=== PATIENT | female | born 1990 | race Asian ===

== ENCOUNTER → 2018-07-23 | Outpatient (CLI) | payer BC ==
[~2018-07-23] MED LIST: ACHD5005 PO; BENZ56AE TP; CODE-54 PO; CYCL10TA9 PO; DCS100C PO; FERR240T9 PO; FRS325T PO; IBP600T1 PO; PREN1TAB19 PO; VALA500T4 PO
--- NOTE | 2018-07-23 17:41 | Diagnostic Imaging Report ---
INDICATION: patient, anatomic survey. TECHNIQUE: Multiple real-time grayscale images were obtained over the gravid uterus. COMPARISON: No previous during this . FINDINGS: A single live intrauterine fetus is seen measuring 21 weeks 3 days by composite measurements. The fetus is in cephalic presentation. Amniotic fluid appears qualitatively normal. heart rate is 148 beats per minute. Placenta is fundal and grade 1 with no evidence of previa. Cervical length was 4.4 cm. Maternal adnexa could not be visualized. survey showed normal-appearing kidneys, bladder, stomach, and intracranial ventricles. Normal appearing four-chamber heart view is seen. Three-vessel cord and cord insertion appear normal. Views of the spine were unremarkable. Biometrical measurements are as follows: Biparietal 5.05 cm, age 21 weeks 3 days. Head circumference 18.87 cm, age 21 weeks 2 days. Abdominal circumference 15.99 cm, age 21 weeks 1 days. Femur length 3.61 cm, age 21 weeks 4 days. Sonographic estimate age: 21 weeks 3 days. Sonographic estimated date of delivery: 11/30/2017. Estimated Weight: 410 gm (+/- 35 gm). LMP percentile: 50%. heart rate: 148 beats per minute. number: 1 of 1. IMPRESSION: Single live intrauterine fetus measuring 21 weeks 3 days in size. There are no detectable abnormalities. Dictated by: Dictated on workstation # [id number]
== END ==
LOC: RAD 15:09
PROVIDERS: ATTEND Obstetrics & Gynecology
DX: Z36.89 Encounter for other specified antenatal screening (principal); Z3A.21 21 weeks gestation of pregnancy
CPT/HCPCS: 76805

== ENCOUNTER 2018-11-07 18:38 | Outpatient (CLI) | payer BC, MEDICAID ==
[~2018-11-07] VITALS: Ht 170.2 cm; Wt 85.4 kg
--- NOTE | 2018-11-07 18:47 | NUR ---
SHA JACK presented to unit via from ED, accompanied by s/o and toddler, with c/o ABD PAIN. SHA JACK weighed, gowned, voided, and to bed. EFHM and TOCO applied, VS taken. SHA JACK oriented to bed controls, call light, TV, heat, and A/C controls.
--- NOTE | 2018-11-07 19:02 | NUR ---
sve by this RN. loose 1cm, very soft, multip cervic. no leaking or bleeding noted.
[2018-11-07 19:04] VITALS: BP 122/79
[2018-11-07 19:13] LABS: BILIRUBIN,URINE NEGATIVE (NEGATIVE); CLARITY,URINE SLIGHTLY CLOUDY; COLOR,URINE YELLOW; GLUCOSE, URINE (UA) NEGATIVE (NEGATIVE); KETONES,URINE NEGATIVE (NEGATIVE); LEUKOCYTE ESTERASE ,URINE 1+ (NEGATIVE); NITRITE,URINE NEGATIVE (NEGATIVE); PH,URINE 7 (5-9); PROTEIN,URINE NEGATIVE (NEGATIVE); UROBILINOGEN,URINE NORMAL (NORMAL)
--- NOTE | 2018-11-07 19:33 | NUR ---
notified of pt's arrival and exam. new orders received.
[2018-11-07] MEDS ORDERED: PREN-8 PO (19:38)
[2018-11-07 19:42] LABS: BACTERIA,URINE FEW /HPF
--- NOTE | 2018-11-07 20:10 | NUR ---
Discharge instructions verbalized with pt. labor precautions given. all questions answered. pt dc'd home with s/o
--- NOTE | 2018-11-10 17:33 | Physician Query-Final Dx ---
GEORGE KEMP 11/10/18 1733: Clinic Account Progress/Dx Physician Query: Please give diagnosis Date of Service Nov 07, 2018 at 18:38 ABDIRASHID BEAVERS MD 11/11/18 0758: Clinic Account Progress/Dx DIAGNOSIS: Diagnosis 27 weeks gestation with urinary tract infection GEORGE KEMP Nov 10, 2018 17:33 ABDIRASHID BEAVERS MD Nov 11, 2018 07:58
== END 2018-11-07 20:10 | disposition home or self-care (01) ==
LOC: WSo 18:38 → LDRP 18:38 → WSo 20:10
PROVIDERS: ATTEND Obstetrics & Gynecology
DX: O23.42 Unspecified infection of urinary tract in pregnancy, second trimester (principal); Z3A.27 27 weeks gestation of pregnancy
CPT/HCPCS: 81000; 87088; 99213

== ENCOUNTER 2018-11-27 18:43 | Inpatient (IN) | payer BC, MEDICAID ==
[~2018-11-27] VITALS: Ht 170.2 cm; Wt 83.5 kg
[~2018-11-27 18:43] MED LIST changes: +PREN-8 PO
[2018-11-27 19:27] LABS: BILIRUBIN,URINE NEGATIVE (NEGATIVE); CLARITY,URINE SLIGHTLY CLOUDY; COLOR,URINE YELLOW; GLUCOSE, URINE (UA) NEGATIVE (NEGATIVE); KETONES,URINE NEGATIVE (NEGATIVE); LEUKOCYTE ESTERASE ,URINE 3+ (NEGATIVE); NITRITE,URINE NEGATIVE (NEGATIVE); PH,URINE 7 (5-9); PROTEIN,URINE 1+ (NEGATIVE); UROBILINOGEN,URINE NORMAL (NORMAL)
[2018-11-27 19:56] LABS: BACTERIA,URINE FEW /HPF; WBC,URINE 50-100 /HPF
--- NOTE | 2018-11-27 22:15 | NUR ---
Dr. Jha on unit, update given on patient. Monitor tracing reviewed per . No new orders received at time.
[2018-11-28] VITALS (40 sets, daily range): BP systolic 106–144; BP diastolic 58–92
[2018-11-28] MEDS ORDERED: morphine INJ 10 MG/ML 1ML (SYR OR VIAL) ONE ×3 (05:47→05:49)
[2018-11-28] MEDS ORDERED: D5 LR IV SOLUTION 1,000 ML IV ONE (05:55)
[2018-11-28] MEDS ORDERED: morphine INJ 10 MG/ML 1ML (SYR OR VIAL) IVP ONE (06:00)
[2018-11-28] MEDS ORDERED: morphine INJ 10 MG/ML 1ML (SYR OR VIAL) IM ONE (06:00)
--- NOTE | 2018-11-28 06:07 | History & Physical-OB ---
OB - Chief Complaint & HPI Date/Time Date of Admission: Date of Admission: 11/28/2018 Date seen by a Provider: Nov 28, 2018 Time Seen by a Provider: 08:00 Chief Complaint/History OB-Reason for Admission/Chief: Onset of Labor Hx : 2 Hx Para: 1 Expected Date of Delivery: Dec 02, 2018 Gestational Age in Weeks: 39 Gestational Age in Days: 2 Admission Nurse Assessment Rev: Yes History of Labs GBS neg Allergies and Home Medications Allergies Coded Allergies: No Known Drug Allergies (Unverified , 02/06/15) Patient Home Medication List Home Medication List Reviewed: Yes OB - History Hx of Present Care: Yes Ultrasounds: Normal mid trimester US Obstetrical Complications: None Medical Complications: None Obstetrical History Hx : 2 Hx Para: 1 Patient Past Medical History see above Social History/Family History Recent Infectious Disease Expo: No Immunizations Hepatitis A: Yes Hepatitis B: Yes Tetanus Booster (TDap): Unknown Date of Influenza Vaccine: Oct 10, 2018 OB - Admission Exam Physical Exam HEENT: NCAT Heart: Rhythm Normal Lungs: Clear Abdomen: Gravid Extremities: Normal Reflexes: Normal Cervical Dilatation: 5cm Effacement: 75% Station: -1 Membranes: Intact Heart Rate: 130's Accelerations: Accelerations Present Decelerations: No Decelerations Short Term Variability: Present Hat Lining Paster Variability: Average (6-25) Contractions on Admission: < 5 Minutes Apart Intensity: Firm Labs Laboratory Tests Test 11/27/18 19:00 Range/Units Urine Color YELLOW Urine Clarity SLIGHTLY CLOUDY Urine pH 7 5-9 Urine Specific [place] 1.010 L 1.016-1.022 Urine Protein 1+ H NEGATIVE Urine Glucose (UA) NEGATIVE NEGATIVE Urine Ketones NEGATIVE NEGATIVE Urine Nitrite NEGATIVE NEGATIVE Urine Bilirubin NEGATIVE NEGATIVE Urine Urobilinogen NORMAL NORMAL MG/DL Urine Leukocyte Esterase 3+ H NEGATIVE Urine RBC (Auto) 3+ H NEGATIVE Urine RBC 2-5 H /HPF Urine WBC 50-100 H /HPF Urine Squamous Epithelial Cells 10-25 H /HPF Urine Crystals NONE /LPF Urine Bacteria FEW H /HPF Urine Casts NONE /LPF Urine Mucus NEGATIVE /LPF Urine Culture Indicated YES OB - Assessment/Plan/Diagnosis Assessment Assessment: active labor Admission Dx 28 yo @ 39.2 Active labor GBS neg Admission Status: Inpatient Order (span 2 midnights) Reason for Inpatient Admission: Active labor at term Plan Plan: Expectant Management LENNOX LEON DO Nov 28, 2018 06:07
[2018-11-28] MEDS ORDERED: D5 LR IV SOLUTION 1,000 ML IV SCH ×2 (06:08→07:15)
[2018-11-28 06:19] LABS: BASOPHILS % (AUTO) 0 % (0-10); EOSINOPHILS % (AUTO) 0 % (0-10); HEMATOCRIT 33 % (35-52); LYMPHOCYTES # (AUTO) 1.8 X 10^3 (1.0-4.0); LYMPHOCYTES % (AUTO) 20 % (12-44); MEAN CORPUSCULAR HEMOGLOBIN 28 PG (25-34); MEAN CORPUSCULAR HGB CONC 33 G/DL (32-36); MEAN CORPUSCULAR VOLUME 85 FL (80-99); MEAN PLATELET VOLUME 11.4 FL (7.4-10.4); MONOCYTES # (AUTO) 0.8 X 10^3 (0.0-1.0); MONOCYTES % (AUTO) 9 % (0-12); NEUTROPHILS # (AUTO) 6.5 X 10^3 (1.8-7.8); NEUTROPHILS % (AUTO) 71 % (42-75); PLATELET COUNT 195 10^3/uL (130-400); RED CELL DISTRIBUTION WIDTH 13.1 % (10.0-14.5); WHITE BLOOD COUNT 9.2 10^3/uL (4.3-11.0)
--- NOTE | 2018-11-28 09:00 | NUR ---
Notified Dr Jha of pts status of 7cms. Pt desires epidural.
[2018-11-28] MEDS ORDERED: SUFENTA 0.6MCG/ML BUPIVA 0.125 100 ML ONE (09:17)
[2018-11-28] MEDS ORDERED: fentaNYL INJECTION 100 MCG/2 ML AMP ONE (09:39)
[2018-11-28] MEDS ORDERED: BUPIVACAINE 0.25% 30 ML (SENSORCAINE) VIAL ONE (09:39)
[2018-11-28] MEDS ORDERED: LIDOCAINE PF 2% 5 ML (XYLOCAINE) VIAL ONE (09:39)
[2018-11-28] MEDS ORDERED: LACTATED RINGERS 1,000 ML IV ONE ×2 (10:59)
[2018-11-28] MEDS ORDERED: NALOXONE 0.4 MG/ML 1 ML (NARCAN) VIAL IV PRN (11:00)
[2018-11-28] MEDS ORDERED: EPIDURAL (SUFENTA 0.6MCG/ML BUPIVA 0.125%) 100 ML BAG EPI PRN (11:00)
[2018-11-28] MEDS ORDERED: ONDANSETRON 4 MG/2 ML (SDV) Z0FRAN IV PRN (11:00)
[2018-11-28] MEDS ORDERED: OXYTOCIN/NORMAL SALINE 500 ML IV ONE (11:22)
[2018-11-28] MEDS ORDERED: LIDOCAINE 1% INJ 20 ML 20 ML VIAL ONE (11:22)
[2018-11-28] MEDS ORDERED: LIDOCAINE/EPI 2% 1:200,00 (XYLOCAINE) 10 ML VIAL ONE (11:25)
--- NOTE | 2018-11-28 11:30 | NUR ---
Dr Jha called to L&D to inquire about pt. Informed pt is comfortable with epidural and contractions every 4 minutes apart. No further vaginal exam due to pt comfort. Membranes intact. Informed pt to notify nurse if pressure or pain is experienced.
[2018-11-28] MEDS ORDERED: FLU QUADRIvalent (5+ YOA) 2018-2019 (AFLURIA) 0.5 ML IM ONE (12:45)
[2018-11-28] MEDS ORDERED: CATHETER FLUSH 10 ML SYR IV SCH ×2 (14:00→22:00)
[2018-11-28] MEDS ORDERED: METHYLERGONOVINE 0.2 MG/ML (METHERGINE) AMP ONE (17:07)
[2018-11-28] MEDS ORDERED: OXYTOCIN/NORMAL SALINE 500 ML IV SCH (17:25)
[2018-11-28] MEDS ORDERED: BENZOCAINE/MENTHOL (DERMOPLAST) 56 ML CAN TP PRN (17:30)
[2018-11-28] MEDS ORDERED: HYDROcodone/APAP 5 MG/325 MG (LORTAB) TAB PO PRN (17:30)
[2018-11-28] MEDS ORDERED: TETANUS,DIPTH,PERTUSS P/F (BOOSTRIX) 0.5 ML VIAL IM ONE (17:30)
[2018-11-28] MEDS ORDERED: WITCH HAZEL(TUCKS) 40 EA JAR TOP PRN (17:30)
[2018-11-28] MEDS ORDERED: MEASLES,MUMPS,RUBELLA 1 EA INJ SQ ONE (17:30)
--- NOTE | 2018-11-28 17:30 | OB Labor & Delivery Record ---
L&D History Date of Service Date of Service: Nov 28, 2018 History Expected Date of Delivery: Dec 02, 2018 Gestational Age in Weeks: 39 Hx : 2 Hx Para: 1 Complications Events: Routine care Operative Indications (Cesarea: N/A-Vaginal Delivery Intrapartal Events: None L&D Stage1 Stage One Onset of Labor - Date: Nov 28, 2018 Monitors and Tracing Monitor Mode: External Heart Rate: 165 Monitor Accelerations: Uniform Monitor Decelerations: Variable Station: -1 Retirement Variability: Average (6-10) Short Term Variability: Present Presentation: Vertex Vital Signs VS - Last 72 Hours, by Label 11/28/18 11/28/18 11/28/18 11/28/18 07:10 09:30 09:32 09:39 Temp 96.8 Pulse 82 92 92 Resp 16 16 B/P (MAP) 115/77 (90) 130/80 (97) 130/80 (97) 131/62 (85) Pulse Ox 100 99 O2 Delivery Room Air Room Air 11/28/18 11/28/18 11/28/18 11/28/18 09:44 09:50 10:00 10:04 Pulse 95 95 91 96 Resp 16 B/P (MAP) 130/61 (84) 131/67 (88) 128/92 (104) 122/72 (89) Pulse Ox 99 98 97 98 O2 Delivery Room Air 11/28/18 11/28/18 11/28/18 11/28/18 10:08 10:13 10:15 10:30 Temp 98.3 Pulse 98 90 88 95 Resp 16 B/P (MAP) 126/62 (83) 126/73 (90) 126/73 (90) 123/71 (88) Pulse Ox 98 99 100 99 11/28/18 11/28/18 11/28/18 11/28/18 10:45 11:00 11:15 11:30 Pulse 99 92 92 94 B/P (MAP) 106/61 (76) 114/61 (78) 108/64 (79) 122/73 (89) Pulse Ox 99 100 100 100 11/28/18 11/28/18 11/28/18 11/28/18 11:45 12:00 12:15 12:30 Temp 98.6 Pulse 93 81 92 96 B/P (MAP) 112/70 (84) 115/72 (86) 111/69 (83) Pulse Ox 99 99 98 96 11/28/18 11/28/18 11/28/18 11/28/18 12:45 13:00 13:10 13:25 Pulse 89 107 97 92 Resp 16 16 18 18 B/P (MAP) 114/77 (89) 107/69 (82) 128/77 (94) 115/72 (86) Pulse Ox 98 100 100 100 11/28/18 11/28/18 11/28/18 11/28/18 13:40 13:55 14:10 14:25 Pulse 90 89 105 117 Resp 18 18 18 18 B/P (MAP) 128/76 (93) 118/75 (89) 115/71 (86) 110/69 (83) Pulse Ox 100 98 98 98 11/28/18 11/28/18 11/28/18 11/28/18 14:40 14:55 15:10 15:25 Temp 99.2 Pulse 112 100 103 103 Resp 18 20 20 20 B/P (MAP) 113/58 (76) 117/63 (81) 116/70 (85) 119/71 (87) Pulse Ox 99 99 99 99 11/28/18 11/28/18 11/28/18 11/28/18 15:40 16:10 16:25 16:40 Pulse 94 93 102 125 Resp 20 20 20 20 B/P (MAP) 123/75 (91) 125/72 (89) 122/66 (84) 118/72 (87) Pulse Ox 99 99 99 99 Rupture of Membranes Spontaneous Ruture of Membrane: No Amniotic Membrane Rupture Time: 1239 Amniotic Membrane Fluid Desc.: Clear Vaginal Bleeding Description: Normal Show Induction/Anesthesia Epidural Cath Placement - Time: 1006 Progress/Notes Epidural given for analgesia, and she progressed with no augmentation other than AROM to complete and +1 L&D Stage2 Stage Two Stage II Date: Nov 28, 2018 Monitors and Tracing Monitor Mode: External Heart Rate: 165 Monitor Accelerations: Uniform Monitor Decelerations: Variable Oil Field Operator Variability: Average (6-10) Short Term Variability: Present Position: Right Occiput Anterior Presentation: Vertex Cord Descript/Complications Cord Vessel Description: 3 Vessels Delivery Type Infant Delivery Method: Spontaneous Vaginal Anterior Shoulder: Right Episiotomy/Perineal Laceration Laceraction(s)/Extensions: No Condition of Delivery 1 minute Comment: 8 5 minute Comment: 9 Notes Live male infant weight pending Condition of Condition of Infant: Living Exam: No Observed Abnormalities Resuscitation Resuscitation: N/A - Spontaneous Resp L&D Stage3 Stage Three Stage III Date: Nov 28, 2018 Pictocin Pitocin Administration Comment: 30 mu wide open at delivery of placenta 0.2 mg methergine IM given for mild uterine atony which responded to medication Placenta Delivery Placenta Delivery: Spontaneous Delivery Summary Summary Estimated blood loss (mL): 400 Attending at delivery: Lennox Leon DO Condition of Delivery Examined: Cervix Examined, Uterus Explored Post Hemorrhage: No Condition of Mother Stable Condition of Infant (s) stable LENNOX LEON DO Nov 28, 2018 17:30
--- NOTE | 2018-11-28 17:35 | NUR ---
fundus firm, light to moderate flow. no clots. 2nd bag of pitocin hung as ordered. in arms at breast, actively nursing.
--- NOTE | 2018-11-28 17:50 | NUR ---
patient nauseated and vomiting. zofran given as ordered see emar. 1755 fundal massage performed moderate stream noted with fundal massage. no clots expressed. ffu/1-2. motrin given as ordered see emar. denies further need.
[2018-11-28] MEDS: IBUPROFEN 600 MG (MOTRIN) TAB PO SCH ×2 (17:55→23:32)
[2018-11-28] MEDS: DOCUSATE SODIUM 100 MG (COLACE) CAP PO SCH (22:36)
[2018-11-29] VITALS: BP 122/62
[2018-11-29 04:00] VITALS: BP 99/59
[2018-11-29] MEDS: IBUPROFEN 600 MG (MOTRIN) TAB PO SCH ×3 (06:30→17:49)
[2018-11-29 08:16] LABS: BASOPHILS % (AUTO) 0 % (0-10); EOSINOPHILS % (AUTO) 0 % (0-10); HEMATOCRIT 33 % (35-52); HEMOGLOBIN 10.6 G/DL (11.5-16.0); LYMPHOCYTES # (AUTO) 2.4 X 10^3 (1.0-4.0); LYMPHOCYTES % (AUTO) 16 % (12-44); MEAN CORPUSCULAR HEMOGLOBIN 28 PG (25-34); MEAN CORPUSCULAR HGB CONC 33 G/DL (32-36); MEAN CORPUSCULAR VOLUME 86 FL (80-99); MEAN PLATELET VOLUME 11.2 FL (7.4-10.4); MONOCYTES # (AUTO) 1.2 X 10^3 (0.0-1.0); MONOCYTES % (AUTO) 8 % (0-12); NEUTROPHILS # (AUTO) 11.5 X 10^3 (1.8-7.8); NEUTROPHILS % (AUTO) 76 % (42-75); PLATELET COUNT 159 10^3/uL (130-400); RED CELL DISTRIBUTION WIDTH 13.1 % (10.0-14.5); WHITE BLOOD COUNT 15.1 10^3/uL (4.3-11.0)
[2018-11-29] MEDS: DOCUSATE SODIUM 100 MG (COLACE) CAP PO SCH ×2 (08:16→22:25)
[2018-11-29] MEDS: FERROUS SULF 325 MG (IRON) TAB PO SCH (08:16)
[2018-11-29] MEDS: PRENATAL VITAMIN 1 EA TAB PO SCH (08:16)
[2018-11-29 08:19] VITALS: BP 110/57
--- NOTE | 2018-11-29 09:10 | NUR ---
Dr. Jha to room to see pt. No new orders rec'd at this time.
--- NOTE | 2018-11-29 09:13 | Postpartum Progress Note ---
Note Note Day # 1 Subjective: Patient is without complaints. Ambulating, voiding. Tolerating a regular diet without nausea or vomiting. Normal lochia. Pain is well controlled with oral pain medications. Objective: Physical Exam: General - Alert and oriented, no apparent distress Abdomen - Soft, appropriately tender to palpation, non-distended, fundus firm at umbilicus Extremities - no edema, negative Howie's bilaterally Assessment: PPD 1 NVD Anemia of Plan: Routine care. Encourage breast feeding. Encourage ambulation. Ferrous sulfate supplementation. Plan for discharge tomorrow Vitals - Labs Vital Signs - I&O Vital Signs Date Time Temp Pulse Resp B/P (MAP) Pulse Ox O2 Delivery O2 Flow Rate FiO2 11/29/18 08:19 97.8 90 18 110/57 (74) 98 11/29/18 04:00 97.1 90 18 99/59 (72) 95 11/29/18 00:00 98.3 107 18 122/62 (82) 11/28/18 20:00 97.1 109 18 127/58 (81) 11/28/18 17:53 99.8 110 18 144/77 (99) 11/28/18 17:38 100.2 103 18 139/72 (94) 11/28/18 17:23 99.9 121 18 134/68 (90) 11/28/18 17:10 100.4 114 20 132/58 (82) 99 11/28/18 16:40 125 20 118/72 (87) 99 11/28/18 16:25 102 20 122/66 (84) 99 11/28/18 16:10 93 20 125/72 (89) 99 11/28/18 15:40 94 20 123/75 (91) 99 11/28/18 15:25 103 20 119/71 (87) 99 11/28/18 15:10 99.2 103 20 116/70 (85) 99 11/28/18 14:55 100 20 117/63 (81) 99 11/28/18 14:40 112 18 113/58 (76) 99 11/28/18 14:25 117 18 110/69 (83) 98 11/28/18 14:10 105 18 115/71 (86) 98 11/28/18 13:55 89 18 118/75 (89) 98 11/28/18 13:40 90 18 128/76 (93) 100 11/28/18 13:25 92 18 115/72 (86) 100 11/28/18 13:10 97 18 128/77 (94) 100 11/28/18 13:00 107 16 107/69 (82) 100 11/28/18 12:45 89 16 114/77 (89) 98 11/28/18 12:30 96 111/69 (83) 96 11/28/18 12:15 98.6 92 98 11/28/18 12:00 81 115/72 (86) 99 11/28/18 11:45 93 112/70 (84) 99 11/28/18 11:30 94 122/73 (89) 100 11/28/18 11:15 92 108/64 (79) 100 11/28/18 11:00 92 114/61 (78) 100 11/28/18 10:45 99 106/61 (76) 99 11/28/18 10:30 98.3 95 123/71 (88) 99 11/28/18 10:15 88 16 126/73 (90) 100 11/28/18 10:13 90 126/73 (90) 99 11/28/18 10:08 98 126/62 (83) 98 11/28/18 10:04 96 122/72 (89) 98 11/28/18 10:00 91 16 128/92 (104) 97 Room Air 11/28/18 09:50 95 131/67 (88) 98 11/28/18 09:44 95 130/61 (84) 99 11/28/18 09:39 92 131/62 (85) 99 11/28/18 09:32 92 16 130/80 (97) 100 11/28/18 09:30 130/80 (97) Room Air I & O 11/29/18 07:00 Intake Total 3500 ml Output Total 150 ml Balance 3350 ml Labs Laboratory Tests 11/29/18 07:21: White Blood Count 15.1H, Red Blood Count 3.80L, Hemoglobin 10.6L, Hematocrit 33L , Mean Corpuscular Volume 86, Mean Corpuscular Hemoglobin 28, Mean Corpuscular Hemoglobin Concent 33, Red Cell Distribution Width 13.1, Platelet Count 159, Mean Platelet Volume 11.2H, Neutrophils (%) (Auto) 76H, Lymphocytes (%) (Auto) 16, Monocytes (%) (Auto) 8, Eosinophils (%) (Auto) 0, Basophils (%) (Auto) 0, Neutrophils # (Auto) 11.5H, Lymphocytes # (Auto) 2.4, Monocytes # (Auto) 1.2H, Eosinophils # (Auto) 0.0, Basophils # (Auto) 0.0 LENNOX LEON DO Nov 29, 2018 09:13
[2018-11-29 12:12] VITALS: BP 117/63
--- NOTE | 2018-11-29 16:08 | Anesthesia-Regional Post-Op ---
Regional Patient Condition Mental Status: Alert, Oriented x3 Circulation: Same as Pre-Op Headache: Absent Sensation: Full Recovery Motor Block: Absent Post Op Complications Complications None Follow Up Care/Instructions Patient Instructions None needed. Anesthesia/Patient Condition Patient is doing well, no complaints, stable vital signs, no apparent adverse anesthesia problems. No complications reported per nursing. JUAN DICKERSON CRNA Nov 29, 2018 16:08
--- NOTE | 2018-11-29 17:00 | NUR ---
Pt c/o perineal pain. Ice pack, dermoplast, tucks provided and lortab given. Pt verbalizes some relief with ice pack.
[2018-11-29 17:48] VITALS: BP 107/58
--- NOTE | 2018-11-29 21:35 | NUR ---
Pt assessment completed and pt given education on nipple care and some lanolin cream to use after feedings.
[2018-11-30 00:04] VITALS: BP 107/60
[2018-11-30] MEDS: IBUPROFEN 600 MG (MOTRIN) TAB PO SCH ×4 (00:06→17:57)
[2018-11-30 05:58] VITALS: BP 125/58
--- NOTE | 2018-11-30 08:00 | NUR ---
CONTINUES TO DO WELL. CARING FOR INFANT IN ROOM. GOOD INTERACTION NOTED.
--- NOTE | 2018-11-30 10:01 | Postpartum Progress Note ---
Note Note Day # 2 Subjective: Patient is without complaints. Ambulating, voiding. Tolerating a regular diet without nausea or vomiting. Normal lochia. Pain is well controlled with oral pain medications. Objective: Physical Exam: General - Alert and oriented, no apparent distress Abdomen - Soft, appropriately tender to palpation, non-distended, fundus firm at umbilicus Extremities - no edema, negative Howie's bilaterally Assessment: PPD 2 NVD Plan: Routine care. Encourage breast feeding. Encourage ambulation. Ferrous sulfate supplementation. Plan for discharge today Vitals - Labs Vital Signs - I&O Vital Signs Date Time Temp Pulse Resp B/P (MAP) Pulse Ox O2 Delivery O2 Flow Rate FiO2 11/30/18 05:58 98.8 70 18 125/58 (80) 97 11/30/18 00:04 97.1 72 18 107/60 (76) 97 11/29/18 17:48 98.3 72 18 107/58 (74) 98 11/29/18 12:12 98.0 89 18 117/63 (81) 98 Labs Microbiology 11/27/18 Urine Culture - Final, Complete 3 or more isolates LENNOX LEON DO Nov 30, 2018 10:01
--- NOTE | 2018-11-30 10:02 | Discharge Inst-Women's Service ---
Discharge Inst-Women's Serv Depart Medication/Instructions New, Converted or Re-Newed RX: RX on Chart Final Diagnosis PPD 2 NVD Consults/Follow Up Additional Follow Up: Yes Activity Activity: Activity as Tolerated Driving Instructions: No Driving for 1 Week NO SMOKING: NO SMOKING Nothing Inside Vagina: No Douching, No [place], No Tampons Diet Discharge Diet: No Restrictions Symptoms to Report to : Bleeding Excessive, Pain Increased, Fever Over 101 Degrees F, Vaginal Bleeding Increase, Questions/Concerns For Any Problems or Questions: Contact Your Physician LENNOX LEON DO Nov 30, 2018 10:02
[2018-11-30] MEDS ORDERED: Benzocaine/Menthol TP (10:03)
[2018-11-30] MEDS ORDERED: FERR325T18 PO (10:03)
[2018-11-30] MEDS ORDERED: DOCU100C37 PO (10:03)
[2018-11-30] MEDS ORDERED: ACHD5005 PO (10:03)
[2018-11-30] MEDS ORDERED: IBUP-844 PO (10:03)
--- NOTE | 2018-11-30 11:15 | NUR ---
INFANT. DOING WELL.
[2018-11-30] MEDS: FERROUS SULF 325 MG (IRON) TAB PO SCH (11:17)
[2018-11-30] MEDS: PRENATAL VITAMIN 1 EA TAB PO SCH (11:17)
[2018-11-30] MEDS: DOCUSATE SODIUM 100 MG (COLACE) CAP PO SCH (11:17)
[2018-11-30 12:00] VITALS: BP 119/83
--- NOTE | 2018-11-30 12:00 | NUR ---
VSS. FAMILY AT BEDSIDE.DENIES ANY PAIN AT THIS TIME. OFFERED ICE PACK PRN TO BOTTOM IF NEEDED.
--- NOTE | 2018-11-30 13:30 | NUR ---
AMBULATED OFF UNIT WITH FAMILY.
--- NOTE | 2018-11-30 15:20 | NUR ---
DISCHARGE INSTRUCTIONS REVIEWED WITH COPY TO PT. RXS GIVEN. STATES UNDERSTANDING OF ALL INSTRUCTIONS AND NEED TO F/U INSTRUCTED. PLAN TO GO TO ROOMING-IN WHEN S.O. GETS RXS FILLED.
--- NOTE | 2018-11-30 15:45 | NUR ---
NURSERY RN ASSISTING WITH PT PUMPING. DECISION TO SUPPLEMENT.
[2018-11-30 18:00] VITALS: BP 115/65
--- NOTE | 2018-11-30 18:00 | NUR ---
VSS. ROUTINE MOTRIN GIVEN.
[2018-11-30 18:40] VITALS: BP 115/65
--- NOTE | 2018-11-30 18:40 | NUR ---
DISMISSED FROM WS IN STABLE CONDITION. PT TO REMAIN A ROOMING IN PARENT. EATING STORK MEAL.
== END 2018-11-30 18:40 | disposition home or self-care (01) | DRG 807 ==
LOC: WSo 18:43 → LDRP 18:43 → WSo 11-28 06:00 → LDRP 11-28 20:35
PROVIDERS: ADMIT Obstetrics & Gynecology; ATTEND Obstetrics & Gynecology
PROC: 10E0XZZ Delivery of Products of Conception, External Approach (ICD-10-PCS; principal; 2018-11-28)
DX: O98.32 Other infections with a predominantly sexual mode of transmission complicating childbirth (principal); O62.2 Other uterine inertia; A60.09 Herpesviral infection of other urogenital tract; O99.62 Diseases of the digestive system complicating childbirth; K21.9 Gastro-esophageal reflux disease without esophagitis; Z3A.39 39 weeks gestation of pregnancy; Z37.0 Single live birth; Z87.891 Personal history of nicotine dependence; Z79.899 Other long term (current) drug therapy
CPT/HCPCS: 36415; 81000; 85025; 86850; 86900; 86901; 87088; 99212

== ENCOUNTER → 2020-06-22 | Outpatient (CLI) | payer BC, MEDICAID ==
[~2020-06-22] MED LIST changes: +Benzocaine/Menthol TP; +DOCU100C37 PO; +FERR325T18 PO; +IBUP-844 PO
--- NOTE | 2020-06-22 15:35 | Diagnostic Imaging Report ---
INDICATION: survey. TECHNIQUE: Multiple real-time grayscale images were obtained over the gravid uterus. COMPARISON: None FINDINGS: There is a single live fetus in a cephalic presentation. heart rate was recorded at 150 bpm. Placenta is posterior and low lying. Amniotic fluid volume is normal. Cervical length is 3.4 cm. kidneys, bladder and stomach are unremarkable. There is a four-chamber heart. There is a three-vessel cord with normal insertion. spine is unremarkable. head anatomy is limited due to position. Biometrical measurements are as follows: Biparietal 4.78 cm, age 20 weeks 4 days. Head circumference 17.48 cm, age 20 weeks 1 days. Abdominal circumference 15.11 cm, age 20 weeks 3 days. Femur length 3.43 cm, age 20 weeks 6 days. Sonographic estimate age: 20 weeks 4 days. Sonographic estimated date of delivery: 11/05/2020. Estimated Weight: 357 gm (+/- 52 gm). LMP percentile: 33%. heart rate: 150 beats per minute. number: 1 of 1. IMPRESSION: Single live IUP 20 weeks 4 days gestational age. Estimated date of confinement sonographically is 11/05/2020. Dictated by: Dictated on workstation # [id number]
== END ==
LOC: RAD 10:09
PROVIDERS: ATTEND Obstetrics & Gynecology
DX: Z36.9 Encounter for antenatal screening, unspecified (principal)
CPT/HCPCS: 76805

== ENCOUNTER 2020-10-28 18:09 | Inpatient (IN) | payer BC, MEDICAID ==
[~2020-10-28] VITALS: Ht 170.2 cm; Wt 88.0 kg
[2020-10-28] VITALS (17 sets, daily range): BP systolic 109–143; BP diastolic 53–89
[2020-10-28] MEDS ORDERED: LACTATED RINGERS 1,000 ML IV ONE ×2 (19:48→22:15)
[2020-10-28] MEDS ORDERED: AMPICILLIN 2,000 MG/14.8 ML (IV USE) ONE (20:14)
[2020-10-28] MEDS ORDERED: ACETAMINOPHEN 500 MG TAB (TYLENOL) ONE (20:14)
[2020-10-28] MEDS ORDERED: WATER (STERILE) FOR INJECTION 20 ML ONE (20:15)
[2020-10-28] MEDS ORDERED: GENTAMICIN 40 MG/ML 2 ML INJ SDV ONE (20:28)
[2020-10-28] MEDS ORDERED: AMPICILLIN FOR IV USE 2,000 MG in WATER (STERILE) FOR INJECTION 14.8 ML IV SCH (20:34)
[2020-10-28] MEDS ORDERED: NS (IVPB) 100 ML ONE (20:34)
--- NOTE | 2020-10-28 20:34 | History & Physical-OB ---
OB - Chief Complaint & HPI Date/Time Date of Admission: Date of Admission: Oct 28, 2020 at 19:45 Date seen by a Provider: Oct 28, 2020 Time Seen by a Provider: 20:00 Chief Complaint/History OB-Reason for Admission/Chief: Onset of Labor Hx : 3 Hx Para: 2 Expected Date of Delivery: Nov 04, 2020 Gestational Age in Weeks: 39 Gestational Age in Days: 0 Admission Nurse Assessment Rev: Yes History of Labs O pos Antibody neg RI RPR NR HBsAg NR HIV NR GC neg GBS neg Allergies and Home Medications Allergies Coded Allergies: No Known Drug Allergies (Unverified , 02/06/15) Home Medications Docusate Sodium 100 Mg Capsule, 100 MG PO BID Prescribed by: LENNOX LEON on 11/30/18 1003 Ferrous Sulfate 325 Mg Tablet, 325 MG PO DAILY@0800 Prescribed by: LENNOX LEON on 11/30/18 1003 Hydrocodone Bit/Acetaminophen 1 Tab Tab, 1-2 TAB PO Q4H PRN for PAIN-MODERATE Prescribed by: LENNOX LEON on 11/30/18 1003 Ibuprofen 600 Mg Tablet, 600 MG PO Q6H Prescribed by: LENNOX LEON on 11/30/18 1003 [Benzocaine/Menthol] 56 ML AEROSOL, 0 ML TP UD PRN for PAIN- SEE INSTRUCTIONS EXTERNAL USE ONLY Prescribed by: LENNOX LEON on 11/30/18 1003 Patient Home Medication List Home Medication List Reviewed: Yes OB - History Hx of Present Care: Yes Ultrasounds: Normal mid trimester US Obstetrical Complications: None Medical Complications: None Patient Past Medical History see above Social History/Family History Alcohol Use: Denies Use Recreational Drug Use: No 2nd Hand Smoke Exposure: Yes Immunizations Hepatitis A: Yes Hepatitis B: Yes Tetanus Booster (TDap): Unknown Date of Influenza Vaccine: Jul 28, 2020 OB - Admission Exam Physical Exam Vitals: Vital Signs 10/28/20 10/28/20 18:30 18:50 Temp 37.2 Pulse 96 Resp 18 Pulse Ox 100 O2 Delivery Room Air HEENT: NCAT Heart: Rhythm Normal Lungs: Clear Abdomen: Gravid Extremities: Normal Reflexes: Normal Cervical Dilatation: 5cm Effacement: 75% Station: -1 Membranes: Intact Heart Rate: 130's Accelerations: Accelerations Present Decelerations: No Decelerations Short Term Variability: Present Handicapped Teacher Variability: Average (6-25) Contractions on Admission: 6-10 Minutes Apart Intensity: Mild OB - Assessment/Plan/Diagnosis Assessment Assessment: active labor Admission Dx 30 yo @ 39 weeks Active labor Maternal fever tachycardia GBS neg Admission Status: Inpatient Order (span 2 midnights) Reason for Inpatient Admission: Active labor at term Plan Other Plan AROM performed, due to temp given 1000 mg of acetaminophen without improvement, started on Amp/Gent for suspected chorioamnionitis. COVID test pending. LENNOX LEON DO Oct 28, 2020 20:34
[2020-10-28 20:40] LABS: BASOPHILS % (AUTO) 0 % (0-10); EOSINOPHILS % (AUTO) 0 % (0-10); HEMATOCRIT 35 % (35-52); LYMPHOCYTES # (AUTO) 1.7 10^3/uL (1.0-4.0); LYMPHOCYTES % (AUTO) 13 % (12-44); MEAN CORPUSCULAR HEMOGLOBIN 27 pg (25-34); MEAN CORPUSCULAR HGB CONC 32 g/dL (32-36); MEAN CORPUSCULAR VOLUME 86 fL (80-99); MEAN PLATELET VOLUME 11.7 fL (9.0-12.2); MONOCYTES # (AUTO) 1.2 10^3/uL (0.0-1.0); MONOCYTES % (AUTO) 9 % (0-12); NEUTROPHILS # (AUTO) 10.7 10^3/uL (1.8-7.8); NEUTROPHILS % (AUTO) 78 % (42-75); PLATELET COUNT 206 10^3/uL (130-400); WHITE BLOOD COUNT 13.8 10^3/uL (4.3-11.0)
[2020-10-28] MEDS ORDERED: ACETAMINOPHEN 500 MG TAB (TYLENOL) PO ONE (20:45)
[2020-10-28] MEDS ORDERED: GENTAMICIN (ADULT) INJECTION 120 MG in NS (IVPB) 100 ML IV ONE ×2 (20:45→21:45)
[2020-10-28] MEDS ORDERED: D5 LR IV SOLUTION 1,000 ML IV SCH (20:45)
[2020-10-28] MEDS ORDERED: fentaNYL 2 mcg/ml BUPIVA 0.125 100 ML ONE (21:25)
[2020-10-28] MEDS ORDERED: fentaNYL INJECTION 100 MCG/2 ML AMP ONE (21:31)
[2020-10-28] MEDS ORDERED: LIDOCAINE PF 2% 5 ML (XYLOCAINE) VIAL ONE (21:31)
[2020-10-28] MEDS ORDERED: BUPIVACAINE 0.25% 30 ML (SENSORCAINE) VIAL ONE (21:31)
[2020-10-28] MEDS ORDERED: CATHETER FLUSH 10 ML SYR IV SCH (22:00)
[2020-10-28] MEDS ORDERED: fentaNYL 2 mcg/ml BUPIVA 0.125 100 ML IV SCH (22:15)
[2020-10-28] MEDS ORDERED: NALOXONE 0.4 MG/ML 1 ML (NARCAN) VIAL IV PRN (22:15)
[2020-10-28] MEDS ORDERED: diphenhydrAMINE 50 MG/ML INJ (BENADRYL) IV PRN (22:15)
[2020-10-28] MEDS ORDERED: ONDANSETRON 4 MG/2 ML (SDV) Z0FRAN IV PRN (22:15)
[2020-10-28] MEDS ORDERED: CATHETER FLUSH 10 ML SYR IV PRN (22:15)
--- NOTE | 2020-10-28 22:20 | Discharge Inst-Women's Service ---
Discharge Inst-Women's Serv Depart Medication/Instructions New, Converted or Re-Newed RX: RX on Chart Final Diagnosis PPD 2 NVD Problems Reviewed?: Yes Consults/Follow Up Additional Follow Up: Yes Orders/Referrals Dr. Leon in 6 weeks Activity Activity: Activity as Tolerated Driving Instructions: No Driving for 1 Week NO SMOKING: NO SMOKING Nothing Inside Vagina: No Douching, No [place], No Tampons Diet Discharge Diet: No Restrictions Symptoms to Report to : Bleeding Excessive, Pain Increased, Fever Over 101 Degrees F, Vaginal Bleeding Increase, Questions/Concerns For Any Problems or Questions: Contact Your Physician LENNOX LEON DO Oct 28, 2020 22:20
[2020-10-28] MEDS ORDERED: ACHD5005 PO (22:21)
[2020-10-28] MEDS ORDERED: DCS100C PO (22:21)
[2020-10-28] MEDS ORDERED: IBUP-844 PO (22:21)
[2020-10-28] MEDS ORDERED: PNV1TABL67 PO (22:21)
[2020-10-28] MEDS ORDERED: BENZ78AE5 TP (22:21)
[2020-10-28] MEDS ORDERED: WITCH HAZEL(TUCKS) 40 EA JAR TOP PRN (22:30)
[2020-10-28] MEDS ORDERED: BENZOCAINE/MENTHOL (DERMOPLAST) 60 ML CAN TP PRN (22:30)
[2020-10-28] MEDS ORDERED: MEASLES,MUMPS,RUBELLA 1 EA INJ SQ ONE (22:30)
[2020-10-28] MEDS ORDERED: TETANUS,DIPTH,PERTUSS P/F (BOOSTRIX) 0.5 ML VIAL IM ONE (22:30)
[2020-10-28] MEDS ORDERED: DIBUCAINE (NUPERCAINAL) 1% OINT 30 GM TOP PRN (22:30)
[2020-10-28] MEDS ORDERED: OXYTOCIN PRE-MIX DRIP 500 ML IV ONE (22:31)
[2020-10-28] MEDS: OXYTOCIN PRE-MIX DRIP 500 ML IV SCH ×2 (22:48→23:55)
--- NOTE | 2020-10-28 23:02 | OB Labor & Delivery Record ---
L&D History Date of Service Date of Service: Oct 28, 2020 History Expected Date of Delivery: Nov 04, 2020 Gestational Age in Weeks: 39 Hx : 3 Hx Para: 2 Complications Events: Routine care Operative Indications (Cesarea: N/A-Vaginal Delivery Intrapartal Events: Febrile Other Complications patient presented febrile and with tachycardia, due to suspicions for chorioamnionitis started on Amp/ Gentamycin L&D Stage1 Stage One Onset of Labor - Date: Oct 28, 2020 Monitors and Tracing Monitor Mode: External Heart Rate: 155 Monitor Decelerations: None Vital Signs VS - Last 72 Hours, by Label 10/28/20 10/28/20 10/28/20 18:29 18:30 18:50 Temp 36.9 36.9 37.2 Pulse 96 96 Resp 18 18 Pulse Ox 100 100 O2 Delivery Room Air Room Air Rupture of Membranes Spontaneous Ruture of Membrane: No Amniotic Membrane Rupture Time: 20:00 Amniotic Membrane Fluid Desc.: Clear Vaginal Bleeding Description: Normal Show Induction/Anesthesia Epidural Cath Placement - Time: 22:00 Progress/Notes Patient rapidly progressed from 5 cm at admission after AROM to complete after epidural was placed L&D Stage2 Stage Two Stage II Date: Oct 28, 2020 Monitors and Tracing Monitor Mode: External Heart Rate: 155 Monitor Decelerations: None Route Agent Variability: Average (6-10) Short Term Variability: Present Position: Right Occiput Anterior Presentation: Vertex Cord Descript/Complications Cord Vessel Description: 3 Vessels Delivery Type Delivery Method: Spontaneous Vaginal Anterior Shoulder: Left Episiotomy/Perineal Laceration Laceraction(s)/Extensions: No Condition of Infant Delivery 1 minute Comment: 8 5 minute Comment: 9 Notes Live female weight pending Condition of Condition of : Living Exam: No Observed Abnormalities Resuscitation Resuscitation: N/A - Spontaneous Resp L&D Stage3 Stage Three Stage III Date: Oct 28, 2020 Pictocin Pitocin Administration Comment: 30 mu wide open at delivery of placenta Placenta Delivery Placenta Delivery: Spontaneous Delivery Summary Summary Estimated blood loss (mL): 350 Attending at delivery: Lennox Leon DO Condition of Delivery Examined: Cervix Examined, Uterus Explored Post Hemorrhage: No Condition of Mother stable Condition of Infant (s) stable LENNOX LEON DO Oct 28, 2020 23:02
[2020-10-28] MEDS ORDERED: KETOROLAC 30 MG/ML VIAL ONE (23:45)
[2020-10-28] MEDS ORDERED: KETOROLAC 30 MG/ML VIAL IV ONE (23:55)
[2020-10-29] VITALS (9 sets, daily range): BP systolic 106–132; BP diastolic 59–67
[2020-10-29] MEDS: AMPICILLIN FOR IV USE 1,000 MG in WATER (STERILE) FOR INJECTION 7.4 ML IV SCH ×5 (01:10→20:12)
[2020-10-29] MEDS ORDERED: CATHETER FLUSH 10 ML SYR IV SCH (06:00)
[2020-10-29 06:30] LABS: BASOPHILS % (AUTO) 0 % (0-10); EOSINOPHILS # (AUTO) 0.1 10^3/uL (0.0-0.3); EOSINOPHILS % (AUTO) 1 % (0-10); HEMATOCRIT 31 % (35-52); HEMOGLOBIN 9.8 g/dL (11.5-16.0); LYMPHOCYTES # (AUTO) 1.6 10^3/uL (1.0-4.0); LYMPHOCYTES % (AUTO) 6 % (12-44); MEAN CORPUSCULAR HEMOGLOBIN 27 pg (25-34); MEAN CORPUSCULAR HGB CONC 32 g/dL (32-36); MEAN CORPUSCULAR VOLUME 84 fL (80-99); MEAN PLATELET VOLUME 11.7 fL (9.0-12.2); MONOCYTES % (AUTO) 8 % (0-12); NEUTROPHILS # (AUTO) 20.1 10^3/uL (1.8-7.8); NEUTROPHILS % (AUTO) 83 % (42-75); PLATELET COUNT 160 10^3/uL (130-400); WHITE BLOOD COUNT 24.2 10^3/uL (4.3-11.0)
[2020-10-29] MEDS: IBUPROFEN 600 MG (MOTRIN) TAB PO SCH ×3 (06:54→18:15)
[2020-10-29] MEDS: FERROUS SULF 325 MG (IRON) TAB PO SCH (08:06)
[2020-10-29] MEDS: DOCUSATE SODIUM 100 MG (COLACE) CAP PO SCH ×2 (08:07→20:38)
[2020-10-29] MEDS: PRENATAL VITAMIN 1 EA TAB PO SCH (08:07)
--- NOTE | 2020-10-29 08:29 | Postpartum Progress Note ---
LIANNA VÁSQUEZ MED STUDENT 10/29/20 0829: Note Note Day # 1 Subjective: Patient is without complaints. Ambulating, voiding. Tolerating a regular diet without nausea or vomiting. Normal lochia. Pain is well controlled with oral pain medications. Pt feels much improved since yesterday. Afebrile today. Objective: Physical Exam: General - Alert and oriented, no apparent distress Abdomen - Soft, appropriately tender to palpation, non-distended, fundus firm at umbilicus Extremities - no edema, negative Howie's bilaterally Assessment: Post- day # 1, status post vaginal delivery. Post- anemia Leukocytosis Suspected chorioamnionitis Plan: Routine care. Encourage breast feeding. Encourage ambulation. Ferrous sulfate supplementation. Continue Gentamicin and Ampicillin for suspected chorioamnionitis. Vitals - Labs Vital Signs - I&O Vital Signs Date Time Temp Pulse Resp B/P (MAP) Pulse Ox O2 Delivery O2 Flow Rate FiO2 10/29/20 04:00 36.6 92 18 115/59 (77) 98 10/29/20 00:50 111 18 125/59 (81) 97 Room Air 10/29/20 00:35 106 18 120/59 (79) 98 Room Air 10/29/20 00:20 115 18 132/64 (86) 98 Room Air 10/29/20 00:05 108 18 131/62 (85) 98 Room Air 10/28/20 23:50 108 18 127/59 (81) 98 Room Air 10/28/20 23:35 116 18 143/65 (91) 98 Room Air 10/28/20 23:20 115 18 127/81 (96) 98 Room Air 10/28/20 23:00 37.9 109 18 109/53 (71) 98 Room Air 10/28/20 22:50 117 18 111/55 (73) 97 Room Air 10/28/20 22:45 121 18 127/62 (83) 99 Room Air 10/28/20 22:40 116 18 116/57 (76) 99 Room Air 10/28/20 22:30 113 18 111/57 (75) 98 Room Air 10/28/20 22:15 38.6 114 18 120/57 (78) 97 Room Air 10/28/20 22:00 118 20 143/72 (95) 98 Room Air 10/28/20 21:55 126 20 140/82 (101) 100 Room Air 10/28/20 21:50 125 20 131/77 (95) 99 Room Air 10/28/20 21:45 125 20 128/72 (90) 100 Room Air 10/28/20 21:40 123 20 139/62 (87) 99 Room Air 10/28/20 21:30 39.2 10/28/20 21:25 118 18 135/88 (104) Room Air 10/28/20 21:00 38.9 10/28/20 20:25 38.7 10/28/20 20:05 38.7 10/28/20 18:50 37.2 10/28/20 18:30 36.9 96 18 100 Room Air 10/28/20 18:29 36.9 96 18 100 Room Air I & O 10/29/20 07:00 Intake Total 2712.8 ml Balance 2712.8 ml Labs Laboratory Tests 10/28/20 20:05: White Blood Count 13.8H, Red Blood Count 4.02, Hemoglobin 11.0L, Hematocrit 35, Mean Corpuscular Volume 86, Mean Corpuscular Hemoglobin 27, Mean Corpuscular Hemoglobin Concent 32, Red Cell Distribution Width 13.0, Platelet Count 206, Mean Platelet Volume 11.7, Immature Granulocyte % (Auto) 1, Neutrophils (%) (Auto) 78H, Lymphocytes (%) (Auto) 13, Monocytes (%) (Auto) 9, Eosinophils (%) (Auto) 0, Basophils (%) (Auto) 0, Neutrophils # (Auto) 10.7H, Lymphocytes # (Auto) 1.7, Monocytes # (Auto) 1.2H, Eosinophils # (Auto) 0.0, Basophils # (Auto) 0.0, Immature Granulocyte # (Auto) 0.1 10/28/20 21:00: Coronavirus 2019 ([facility]) Negative 10/29/20 05:25: White Blood Count 24.2H, Red Blood Count 3.65L, Hemoglobin 9.8L, Hematocrit 31L, Mean Corpuscular Volume 84, Mean Corpuscular Hemoglobin 27, Mean Corpuscular Hemoglobin Concent 32, Red Cell Distribution Width 12.9, Platelet Count 160, Mean Platelet Volume 11.7, Immature Granulocyte % (Auto) 1, Neutrophils (%) (Auto) 83H, Lymphocytes (%) (Auto) 6L, Monocytes (%) (Auto) 8, Eosinophils (%) (Auto) 1, Basophils (%) (Auto) 0, Neutrophils # (Auto) 20.1H, Lymphocytes # (Auto) 1.6, Monocytes # (Auto) 2.0H, Eosinophils # (Auto) 0.1, Basophils # (Auto) 0.0, Immature Granulocyte # (Auto) 0.3H ROLO LEON DO 10/29/20 1340: Note Note Verification and Attestation of Medical Student E/M Service Agree with medical student assessment, addition of Acute blood loss anemia Plan: Stop antibiotics once 24 hr afebrile Will repeat CBC tomorrow to ensure WBC improvement A medical student performed and documented this service in my presence. I revi ewed and verified all information documented by the medical student and made modifications to such information, when appropriate. I personally performed the physical exam and medical decision making. Rolo Leon, Oct 29, 2020,13:38 LIANNA VÁSQUEZ MED STUDENT Oct 29, 2020 08:29 ROLO LEON DO Oct 29, 2020 13:40
[2020-10-29 11:26] LABS: ALBUMIN 2.7 GM/DL (3.2-4.5); CHLORIDE 108 MMOL/L (98-107); POTASSIUM 3.7 MMOL/L (3.6-5.0); SODIUM 134 MMOL/L (135-145)
[2020-10-29 11:27] LABS: CALCIUM 8.5 MG/DL (8.5-10.1)
[2020-10-29 11:28] LABS: GLUCOSE 123 MG/DL (70-105); TOTAL PROTEIN 5.5 GM/DL (6.4-8.2)
[2020-10-29 11:29] LABS: CARBON DIOXIDE 18 MMOL/L (21-32)
[2020-10-29 11:30] LABS: BILIRUBIN,TOTAL 0.3 MG/DL (0.1-1.0)
[2020-10-29 11:32] LABS: ALKALINE PHOSPHATASE 120 U/L (40-136); CREATININE SERUM 0.68 MG/DL (0.60-1.30); GFR ESTIMATED > 60
[2020-10-29 11:33] LABS: BUN/CREATININE RATIO 9
[2020-10-29 11:35] LABS: ALANINE AMINOTRANSFERASE 6 U/L (0-55)
[2020-10-29] MEDS ORDERED: NS IV 500 ML 500 ML ONE (11:49)
[2020-10-29] MEDS: HYDROcodone/APAP 5 MG/325 MG (LORTAB) TAB PO PRN ×3 (12:14→21:41)
--- NOTE | 2020-10-29 17:19 | Anesthesia-Regional Post-Op ---
Regional Patient Condition Mental Status: Alert, Oriented x3 Circulation: Same as Pre-Op Headache: Absent Sensation: Full Recovery Motor Block: Absent Post Op Complications Complications None Follow Up Care/Instructions Patient Instructions None needed. Anesthesia/Patient Condition Patient is doing well, no complaints, stable vital signs, no apparent adverse anesthesia problems. No complications reported per nursing. COOKIE STANFORD CRNA Oct 29, 2020 17:19
[2020-10-29] MEDS ORDERED: GENTAMICIN IV SCH (21:00)
[2020-10-29] MEDS ORDERED: D5W IV SCH (21:00)
[2020-10-30] MEDS: AMPICILLIN FOR IV USE 1,000 MG in WATER (STERILE) FOR INJECTION 7.4 ML IV SCH (00:31)
[2020-10-30] MEDS: IBUPROFEN 600 MG (MOTRIN) TAB PO SCH ×2 (00:31→06:12)
[2020-10-30 00:32] VITALS: BP 118/60
[2020-10-30] MEDS: HYDROcodone/APAP 5 MG/325 MG (LORTAB) TAB PO PRN ×2 (02:12→08:55)
[2020-10-30 06:02] LABS: BASOPHILS % (AUTO) 0 % (0-10); EOSINOPHILS # (AUTO) 0.1 10^3/uL (0.0-0.3); EOSINOPHILS % (AUTO) 1 % (0-10); HEMATOCRIT 31 % (35-52); HEMOGLOBIN 9.8 g/dL (11.5-16.0); LYMPHOCYTES # (AUTO) 3.2 10^3/uL (1.0-4.0); LYMPHOCYTES % (AUTO) 21 % (12-44); MEAN CORPUSCULAR HEMOGLOBIN 27 pg (25-34); MEAN CORPUSCULAR HGB CONC 32 g/dL (32-36); MEAN CORPUSCULAR VOLUME 84 fL (80-99); MEAN PLATELET VOLUME 11.3 fL (9.0-12.2); MONOCYTES # (AUTO) 0.7 10^3/uL (0.0-1.0); MONOCYTES % (AUTO) 5 % (0-12); NEUTROPHILS # (AUTO) 11.5 10^3/uL (1.8-7.8); NEUTROPHILS % (AUTO) 73 % (42-75); PLATELET COUNT 165 10^3/uL (130-400); WHITE BLOOD COUNT 15.7 10^3/uL (4.3-11.0)
[2020-10-30 06:10] VITALS: BP 117/71
--- NOTE | 2020-10-30 07:03 | Postpartum Progress Note ---
Note Note Day # 2 Subjective: Patient is without complaints. Ambulating, voiding. Tolerating a regular diet without nausea or vomiting. Normal lochia. Pain is well controlled with oral pain medications. Objective: Physical Exam: General - Alert and oriented, no apparent distress Abdomen - Soft, appropriately tender to palpation, non-distended, fundus firm at umbilicus Extremities - no edema, negative Howie's bilaterally Assessment: PPD 2 NVD Leukocytosis improving- afebrile Acute blood loss anemia Plan: Routine care. Encourage breast feeding. Encourage ambulation. Ferrous sulfate supplementation. Plan for discharge today Vitals - Labs Vital Signs - I&O Vital Signs Date Time Temp Pulse Resp B/P (MAP) Pulse Ox O2 Delivery O2 Flow Rate FiO2 10/30/20 06:10 36.6 70 18 117/71 (86) 98 10/30/20 00:32 36.4 67 16 118/60 (79) 98 Room Air 10/29/20 20:38 36.4 76 17 116/67 (83) 98 10/29/20 16:01 36.3 75 16 106/66 (79) 97 Room Air 10/29/20 12:07 36.5 99 16 112/65 (81) 97 10/29/20 09:00 36.3 72 16 125/61 (82) 98 I & O 10/30/20 07:00 Intake Total 14.8 ml Balance 14.8 ml Labs Laboratory Tests 10/30/20 05:48: White Blood Count 15.7H, Red Blood Count 3.66L, Hemoglobin 9.8L, Hematocrit 31L, Mean Corpuscular Volume 84, Mean Corpuscular Hemoglobin 27, Mean Corpuscular Hemoglobin Concent 32, Red Cell Distribution Width 13.2, Platelet Count 165, Mean Platelet Volume 11.3, Immature Granulocyte % (Auto) 1, Neutrophils (%) (Auto) 73, Lymphocytes (%) (Auto) 21, Monocytes (%) (Auto) 5, Eosinophils (%) (Auto) 1, Basophils (%) (Auto) 0, Neutrophils # (Auto) 11.5H, Lymphocytes # (Auto) 3.2, Monocytes # (Auto) 0.7, Eosinophils # (Auto) 0.1, Basophils # (Auto) 0.0, Immature Granulocyte # (Auto) 0.1, Random Gentamicin Level 5.4 LENNOX LEONb 21, 2021 07:03
[2020-10-30] MEDS: FERROUS SULF 325 MG (IRON) TAB PO SCH (08:48)
[2020-10-30] MEDS: DOCUSATE SODIUM 100 MG (COLACE) CAP PO SCH (08:48)
[2020-10-30] MEDS: PRENATAL VITAMIN 1 EA TAB PO SCH (08:49)
[2020-10-30 08:55] VITALS: BP 118/80
[2020-10-30 09:10] VITALS: BP 118/80
== END 2020-10-30 10:45 | disposition home or self-care (01) | DRG 805 ==
LOC: WSo 18:09 → LDRP 18:10 → WSo 19:44 → LDRP 19:45
PROVIDERS: ADMIT Obstetrics & Gynecology; ATTEND Obstetrics & Gynecology
PROC: 10E0XZZ Delivery of Products of Conception, External Approach (ICD-10-PCS; principal; 2020-10-28)
PROC: 10907ZC Drainage of Amniotic Fluid, Therapeutic from Products of Conception, Via Natural or Artificial Opening (ICD-10-PCS; 2020-10-28)
DX: O76 Abnormality in fetal heart rate and rhythm complicating labor and delivery (principal); O41.1230 Chorioamnionitis, third trimester, not applicable or unspecified; Z37.0 Single live birth; D62 Acute posthemorrhagic anemia; O75.2 Pyrexia during labor, not elsewhere classified; Z3A.39 39 weeks gestation of pregnancy; O90.81 Anemia of the puerperium; D72.829 Elevated white blood cell count, unspecified; Z20.822 Contact with and (suspected) exposure to COVID-19
CPT/HCPCS: 36415; 80053; 80170; 85025; 86850; 86900; 86901; 87635; 99212